=== PATIENT | male | born 1965 | race Caucasian/White ===

== ENCOUNTER 2023-09-16 19:24 | Emergency (ER) | payer OTHER, SELFPAY ==
[2023-09-16 19:26] VITALS: BP 136/90; PULSE 111; RESP 18; TEMP 36.2; O2SAT 95; BMI 37.6
[2023-09-16] MEDS: 0.9% Normal Saline (1000mL) 1,000 ML 999 ML IV (20:58)
--- OUTSIDE RECORDS SUMMARY | 2023-09-16 21:15 | XMS RPT_ITS | CCD ---
Author Name Unknown Address [address] [place] [address] Organization [facility] Care Team Providers Care Sheet Metal Helper Name Role Phone AMANDA DAWN Unavailable Unavailable LIZBETH PELAEZ Unavailable Unavailable Lizbeth Pelaez DO Primary Care Provider Eleanor Kirk DO Primary Care Provider ELEANOR KIRK Primary Care Unavailable DAMIEN ARNDT Unavailable Medications Current Medications Medication Drug Class(es) Dates Sig (Normalized) Sig (Original) atorvastatin 10 mg oral tablet (1 source) HMG-CoA Reductase Inhibitor take 1 tablet by mouth once daily atorvastatin (LIPITOR) 10 MG tablet Take 10 mg by mouth daily 0 Active canagliflozin 150 mg / metFORMIN hydrochloride 1000 mg oral tablet (1 source) Biguanide, Sodium-Glucose Cotransporter 2 Inhibitor take 150-1000 mg by mouth once daily canagliflozin-me tformin HCl (INVOKAMET) 150-1000 MG Take 1 tablet by mouth daily 0 Active DULoxetine (2 sources) Serotonin and Norepinephrine Reuptake Inhibitor DULOXETINE HCL PO Take by mouth. 0 Active gabapentin (2 sources) Anti-epileptic Agent GABAPENTIN PO Take by mouth. 0 Active hydroCHLOROthiazide 12.5 mg / losartan potassium 50 mg oral tablet (1 source) Thiazide Diuretic, Angiotensin 2 Receptor Josue take 1 tablet by mouth once daily losartan-hydroch lorothiazide (HYZAAR) 50-12.5 MG per tablet Take 1 tablet by mouth daily 0 Active ibuprofen 600 mg oral tablet (1 source) Nonsteroidal Anti-inflammatory Drug Start: 05-04-2017 take 1 tablet by mouth every six hours as needed for pain ibuprofen (ADVIL;MOTRIN) 600 MG tablet Take 1 tablet by mouth every 6 hours as needed for Pain 20 tablet 3 05/04/2017 Active 3 ml insulin degludec 100 unt/ml pen injector (1 source) Insulin Analog Insulin Degludec (TRESIBA FLEXTOUCH) 100 UNIT/ML SOPN Inject 20 Units into the skin daily 0 Active Losartan (2 sources) Angiotensin 2 Receptor Josue LOSARTAN POTASSIUM PO Take by mouth. 0 Active meloxicam (2 sources) Nonsteroidal Anti-inflammatory Drug MELOXICAM PO Take by mouth. 0 Active Completed/Discontinued Medications Medication Drug Class(es) Dates Sig (Normalized) Sig (Original) acetaminophen 325 mg / HYDROcodone bitartrate 5 mg oral tablet (2 sources) Opioid Agonist Start: 03-04-2023 End: 03-04-2023 HYDROcodone-acetam inophen ([place]) 5-325 MG per tablet 1 tablet erythromycin 0.005 mg/mg ophthalmic ointment (4 sources) Macrolide, Macrolide Antimicrobial Start: 03-04-2023 End: 03-04-2023 erythromycin (Romycin) 5 MG/GM ophthalmic ointment Problems Problem Classification Problem Date Documented Da te Episodic/Chronic Open wounds of head; neck; and trunk (4 sources) Laceration of left eyelid; Translations: [Laceration without foreign body of left eyelid and periocular area, initial encounter] Onset: 03-04-2023 03-04-2023 Episodic Other injuries and conditions due to external causes (2 sources) Injury of eye region; Translations: [Unspecified injury of unspecified eye and orbit, initial encounter] 03-04-2023 Episodic Other injuries and conditions due to external causes (2 sources) Unspecified injury of unspecified eye and orbit, initial encounter; Translations: [Unspecified injury of unspecified eye and orbit, initial encounter] Onset: 03-04-2023 Episodic Superficial injury; contusion (4 sources) Abrasion of left cornea; Translations: [Injury of conjunctiva and corneal abrasion without foreign body, left eye, initial encounter] Onset: 03-04-2023 03-04-2023 Episodic Results Test Name Value Interpretation Reference Range Facil ity Vital Signs Date Time Vital Sign Value Performing Clinician Faci yessenia 03-04-2023 20:51-0400 Diastolic blood pressure 89 mm[Hg] Damien Arndt MD Work Phone: [facility] [employer] 03-04-2023 20:51-0400 Heart rate 88 /min Damien Arndt MD Work Phone: [facility] [employer] 03-04-2023 20:51-0400 Respiratory rate 17 /min Damien Arndt MD Work Phone: [facility] 03-04-2023 20:51-0400 SaO2% (BldA) [Mass fraction] 95 % Damien Arndt MD Work Phone: [facility] 03-04-2023 20:51-0400 Systolic blood pressure 147 mm[Hg] Damien Arndt MD Work Phone: [facility] 03-04-2023 20:02-0400 Body temperature 98.4 [degF] Damien Arndt MD Work Phone: [facility] Encounters Encounter Date Encounter Type Care Provider Facility Start: 03-04-2023 End: 03-04-2023 Emergency department patient visit ELEANOR KIRK [facility] Start: 03-04-2023 End: 03-04-2023 Emergency department patient visit Damien Arndt MD Work Phone: [facility] ED Procedures Date Procedure Procedure Detail Performing Clinician Start: 03-04-2023 Sutr wnd eyelid/margin/tarsus/conju nc prtl thick Damien Arndt MD Work Phone: Start: 12-20-2020 Radex spine lumbosac ral 2/3 views Eleanor Kirk DO Work Phone: Plan of Treatment Date Care Activity Detail Author Start: 03-04-2033 DTaP/Tdap/Td Vaccine s (2 - Td or Tdap) DTaP/Tdap/Td Vaccines (2 - Td or Tdap) [facility] Start: 05-03-2023 Influenza vaccination Influenza Vacc ine (#1) [facility] Start: 05-03-2021 Influenza vaccination Flu vacc ine (Season Ended) [email or web address] Work Phone: Start: 2013 Screening for malign ant neoplasm of colon Colon cancer screen colonoscopy [employer] Work Phone: Start: 2013 Shingles Vaccine (1 of 2) Shingles Vaccine (1 of 2) [email or web address] Work Phone: Start: 2013 Zoster Vaccines (1 of 2) Zoster Vacc elena (1 of 2) [facility] Start: 1982 DTaP/Tdap/Td vaccine (1 - Tdap) DTaP/Tdap/Td vaccine (1 - Tdap) [facility] Work Phone: Start: 1981 Diabetes mellitus screening Diabetes Screening [facility] Start: 1981 Hepatitis C screening Hepatitis C Sc reening [facility] Start: 1979 COVID-19 Vaccine (1) COVID-19 Vaccin e (1) [facility] Work Phone: Start: 1978 HIV screening HIV screen [facility] Work Phone: Start: 1975 Depression Screening Depression Scre ening [facility] Start: 1973 Lipid panel Lipid screen [facility] Work Phone: Start: 01-03-1964 MMR Vaccines (1 of 1 - Standard series) MMR Vaccines (1 of 1 - Standard series) [facility] Start: 1963 COVID-19 Vaccine (#1) COVID-19 Vacci ne (#1) [facility] Start: 1963 Creatinine measurement Creatinine mo nitoring [facility] Work Phone: Start: 1963 Hepatitis C screening Hepatitis C sc reen [facility] Work Phone: Start: 1963 HIV screening HIV Screening [facility] Start: 1963 Lipid panel Lipid Panel [facility] Start: 1963 Potassium monitoring Potassium monit oring [facility] Work Phone: Start: 1963 Screening for malign ant neoplasm of colon [facility] Immunizations Immunization Date Immunization Notes Care Provider Fa cility 03-04-2023 tetanus toxoid, redu glory diphtheria toxoid, and acellular pertussis vaccine, adsorbed Damien Arndt MD Work Phone: [facility] Payers Date Payer Category Payer Private Health Insurance [facility] [id number] 2022-Present [address] [place] [address] Commercial [id number] 2022 Private Health Insurance [id number] 2017 Unknown [id number] 1965 Unknown [id number] Social History Date Type Detail Facility Start: 05-04-2017 Tobacco smoking stat [facility] Former smoker [facility] Work Phone: Start: 05-04-2017 Cigarettes smoked current (pack per day) - Reported [facility] Work Phone: Start: 05-04-2017 End: 03-04-2023 Alcohol intake Current non-drinker of alcohol (finding) [employer] Phone: Start: 1965 Sex Assigned At Not on file [facility] [employer] Phone: History of tobacco use Current smoker [facility] History of tobacco use Cigarette Smoker [facility] [employer] Gender identity Not on file [facility] [employer] Start: 02-22-2023 End: 03-04-2023 Exposure to SARS-CoV-2 (event) Not sure [facility] [employer] Medical Equipment Procedure Code Equipment Code Equipment Origin al Text Equipment Identifier Dates fluorescein 1 MG ophthalmic strip 1 strip [id number] Start: 03-04-2023 End: 03-04-2023 Emergency department Note 03-04-2023 Damien Arndt MD - 03/04/2023 7:53 PM EDTJemanuel Quiñonez RN - 03/04/2023 7:53 PM EDT Note Date & Type Note Facility 03-04-2023 Emergency departm ent Note Associated Order(s): Laceration Repair Images from the original note were not included. EMERGENCY DEPARTMENT ENCOUNTER Pt Name: Sebastian Cao Birthdate 1965 Date of evaluation: 03/04/2023 ED Provider: Damien Arndt MD CHIEF COMPLAINT No chief complaint on file. HISTORY OF PRESENT ILLNESS (Location/Symptom, Timing/Onset, Context/Setting, Quality, Duration, Modifying Factors, Severity) Note limiting factors. I wore appropriate PPE for the entirety of this encounter. HPI Sebastian Cao is a 58 y.o. who presents to the emergency department evaluated for his left eye pain. Patient states that he tripped and fell hitting his left face, eye on an angle wire. Denies loss of consciousness. Denies being on any blood thinners. States that he noticed some blood coming from it. Denies wearing contacts. States that he uses reading glasses. Nursing Notes were reviewed. REVIEW OF SYSTEMS Review of Systems Constitutional: Negative for fever. HENT: Positive for facial swelling (left facial swelling around eye). Eyes: Positive for photophobia and pain. Musculoskeletal: Negative for neck pain. Skin: Positive for wound. Neurological: Negative for syncope. Hematological: Does not bruise/bleed easily. Pertinent positives and negatives as per HPI PAST MEDICAL HISTORY Past Medical History: Diagnosis Date Chronic cholecystitis Diabetes mellitus (HCC) H/O CT scan High blood pressure Steatosis of liver Umbilical hernia SURGICAL HISTORY Past Surgical History: Procedure Laterality Date CHOLECYSTECTOMY 12/09/2014 Dr. Hager-- ALESIA COLONOSCOPY KNEE ARTHROSCOPY Bilateral 2013 Wad/RIT LIVER BIOPSY 12/09/2014 DAVID-- Dr. Hager-- ALESIA UMBILICAL HERNIA REPAIR 12/09/2014 DAVID- Dr. Hager-- ALESIA UPPER GASTROINTESTINAL ENDOSCOPY CURRENT MEDICATIONS Previous Medications No medications on file ALLERGIES Patient has no allergy information on record. FAMILY HISTORY Family History Problem Relation Name Age of Onset Heart attack Brother Diabetes Mother Heart attack Father Diabetes Father SOCIAL HISTORY Social History Socioeconomic History Marital status: Tobacco Use Smoking status: Former Packs/day: 0.20 Types: Cigarettes Substance and Sexual Activity Alcohol use: No Drug use: No SCREENINGS PHYSICAL EXAM ED Triage Vitals Temp Pulse Resp BP -- -- -- -- SpO2 Temp src Heart Rate Source Patient Position -- -- -- -- BP Location FiO2 (%) -- -- Physical Exam Vitals and nursing note reviewed. Constitutional: General: He is not in acute distress. Comments: 58-year-old male HENT: Head: Normocephalic. Comments: Left periorbital swelling. Mouth/Throat: Comments: Midface stable. No malocclusion. Eyes: General: Lids are everted, no foreign bodies appreciated. Vision grossly intact. Gaze aligned appropriately. Left eye: No foreign body. Extraocular Movements: Extraocular movements intact. Pupils: Pupils are equal, round, and reactive to light. Left eye: Corneal abrasion present. Andres exam negative. Slit lamp exam: Left eye: Anterior chamber quiet. No hyphema or hypopyon. Comments: 0.5 cm partial-thickness laceration to the left upper eyelid. No focal visual field deficits. Visual acuity obtained by nursing. Cardiovascular: Rate and Rhythm: Normal rate. Pulmonary: Effort: Pulmonary effort is normal. Musculoskeletal: Cervical back: Normal range of motion. Skin: Comments: Left upper eyelid laceration Neurological: Mental Status: He is alert. DIAGNOSTIC RESULTS RADIOLOGY (Per Emergency Physician): Interpretation per the Radiologist below, if available at the time of this note: No orders to display LABS: Labs Reviewed - No data to display All other labs were within normal range or not returned as of this dictation. EMERGENCY DEPARTMENT COURSE and DIFFERENTIAL DIAGNOSIS/MDM: Vitals: There were no vitals filed for this visit. Medications - No data to display Evaluated for his left eye injury. At that partial-thickness laceration to his left upper eyelid. Performed shared decision-making form consent. Patient elected for tissue adhesive repair. Placed TegaDerm to keep eyelids closed and protect eye. Patient treated with topical tetracaine. Cleansed with iodine. Wound approximated. Performed tetracaine and fluorescein slit and Maza lamp exam. Patient has small abrasion. Negative Andres's. No signs of open globe injury appreciated. Patient treated with topical erythromycin ointment. Discharged with recommendation to follow-up with eye provider in a couple days for reevaluation. Patient discharged improved condition. Agreeable with plan. PROCEDURES: Unless otherwise noted below, none Laceration Repair Performed by: Damien Arndt MD Authorized by: Damien Arndt MD Consent: Consent obtained: Verbal Consent given by: Patient Risks discussed: Infection, need for additional repair, nerve damage, pain, poor cosmetic result and poor wound healing Alternatives discussed: No treatment and delayed treatment Goessel protocol: Procedure explained and questions answered to patient or proxy's satisfaction: yes Patient identity confirmed: Verbally with patient Anesthesia: Anesthesia method: Topical application Topical anesthesia: Tetracaine. Laceration details: Location: Face Face location: L upper eyelid Extent: Partial thickness Length (cm): 0.5 Depth (mm): 1 Pre-procedure details: Preparation: Patient was prepped and draped in usual sterile fashion Exploration: Imaging outcome: foreign body not noted Wound extent: no foreign bodies/material noted Treatment: Area cleansed with: Povidone-iodine Skin repair: Repair method: Tissue adhesive Approximation: Approximation: Close Repair type: Repair type: Simple Post-procedure details: Dressing: Open (no dressing) Procedure completion: Tolerated well, no immediate complications CRITICAL CARE TIME FINAL IMPRESSION No diagnosis found. DISPOSITION PATIENT REFERRED TO: No follow-up provider specified. DISCHARGE MEDICATIONS: New Prescriptions No medications on file (Comment: Please note this report has been produced using speech recognition software and may contain errors related to that system including errors in grammar, punctuation, and spelling, as well as words and phrases that may be inappropriate. If there are any questions or concerns please feel free to contact the dictating provider for clarification.) Damien Arndt MD (electronically signed) Emergency Medicine Provider Damien Arndt MD 03/04/232128 Pt given dc instructions and follow up care. Pt verbalizes understanding. Pt amb indep to dc area, home w family documented in this encounter [facility] Emergency department Triage note 03-04-2023 Leonila Quiñonez RN - 03/04/2023 7:53 PM EDT Note Date & Type Note Facility 03-04-2023 Emergency departm ent Triage note Pt given dc instructions and follow up care. Pt verbalizes understanding. Pt amb indep to dc area, home w family [facility] Physician Emergency department Note 03-04-2023 Damien Arndt MD - 03/04/2023 7:53 PM EDT Note Date & Type Note Facility 03-04-2023 Physician Emergen cy department Note Associated Order(s): Laceration Repair Images from the original note were not included. EMERGENCY DEPARTMENT ENCOUNTER Pt Name: Sebastian Cao Birthdate 1965 Date of evaluation: 03/04/2023 ED Provider: Damien Arndt MD CHIEF COMPLAINT No chief complaint on file. HISTORY OF PRESENT ILLNESS (Location/Symptom, Timing/Onset, Context/Setting, Quality, Duration, Modifying Factors, Severity) Note limiting factors. I wore appropriate PPE for the entirety of this encounter. HPI Sebastian Cao is a 58 y.o. who presents to the emergency department evaluated for his left eye pain. Patient states that he tripped and fell hitting his left face, eye on an angle wire. Denies loss of consciousness. Denies being on any blood thinners. States that he noticed some blood coming from it. Denies wearing contacts. States that he uses reading glasses. Nursing Notes were reviewed. REVIEW OF SYSTEMS Review of Systems Constitutional: Negative for fever. HENT: Positive for facial swelling (left facial swelling around eye). Eyes: Positive for photophobia and pain. Musculoskeletal: Negative for neck pain. Skin: Positive for wound. Neurological: Negative for syncope. Hematological: Does not bruise/bleed easily. Pertinent positives and negatives as per HPI PAST MEDICAL HISTORY Past Medical History: Diagnosis Date Chronic cholecystitis Diabetes mellitus (HCC) H/O CT scan High blood pressure Steatosis of liver Umbilical hernia SURGICAL HISTORY Past Surgical History: Procedure Laterality Date CHOLECYSTECTOMY 12/09/2014 Dr. Hager-- ALESIA COLONOSCOPY KNEE ARTHROSCOPY Bilateral 2013 Wad/MIHAELA LIVER BIOPSY 12/09/2014 DAVID-- Dr. Hager-- ALESIA UMBILICAL HERNIA REPAIR 12/09/2014 DAVID- Dr. Hager-- ALESIA UPPER GASTROINTESTINAL ENDOSCOPY CURRENT MEDICATIONS Previous Medications No medications on file ALLERGIES Patient has no allergy information on record. FAMILY HISTORY Family History Problem Relation Name Age of Onset Heart attack Brother Diabetes Mother Heart attack Father Diabetes Father SOCIAL HISTORY Social History Socioeconomic History Marital status: Tobacco Use Smoking status: Former Packs/day: 0.20 Types: Cigarettes Substance and Sexual Activity Alcohol use: No Drug use: No SCREENINGS PHYSICAL EXAM ED Triage Vitals Temp Pulse Resp BP -- -- -- -- SpO2 Temp src Heart Rate Source Patient Position -- -- -- -- BP Location FiO2 (%) -- -- Physical Exam Vitals and nursing note reviewed. Constitutional: General: He is not in acute distress. Comments: 58-year-old male HENT: Head: Normocephalic. Comments: Left periorbital swelling. Mouth/Throat: Comments: Midface stable. No malocclusion. Eyes: General: Lids are everted, no foreign bodies appreciated. Vision grossly intact. Gaze aligned appropriately. Left eye: No foreign body. Extraocular Movements: Extraocular movements intact. Pupils: Pupils are equal, round, and reactive to light. Left eye: Corneal abrasion present. Andres exam negative. Slit lamp exam: Left eye: Anterior chamber quiet. No hyphema or hypopyon. Comments: 0.5 cm partial-thickness laceration to the left upper eyelid. No focal visual field deficits. Visual acuity obtained by nursing. Cardiovascular: Rate and Rhythm: Normal rate. Pulmonary: Effort: Pulmonary effort is normal. Musculoskeletal: Cervical back: Normal range of motion. Skin: Comments: Left upper eyelid laceration Neurological: Mental Status: He is alert. DIAGNOSTIC RESULTS RADIOLOGY (Per Emergency Physician): Interpretation per the Radiologist below, if available at the time of this note: No orders to display LABS: Labs Reviewed - No data to display All other labs were within normal range or not returned as of this dictation. EMERGENCY DEPARTMENT COURSE and DIFFERENTIAL DIAGNOSIS/MDM: Vitals: There were no vitals filed for this visit. Medications - No data to display Evaluated for his left eye injury. At that partial-thickness laceration to his left upper eyelid. Performed shared decision-making form consent. Patient elected for tissue adhesive repair. Placed TegaDerm to keep eyelids closed and protect eye. Patient treated with topical tetracaine. Cleansed with iodine. Wound approximated. Performed tetracaine and fluorescein slit and Maza lamp exam. Patient has small abrasion. Negative Andres's. No signs of open globe injury appreciated. Patient treated with topical erythromycin ointment. Discharged with recommendation to follow-up with eye provider in a couple days for reevaluation. Patient discharged improved condition. Agreeable with plan. PROCEDURES: Unless otherwise noted below, none Laceration Repair Performed by: Damien Arndt MD Authorized by: Damien Arndt MD Consent: Consent obtained: Verbal Consent given by: Patient Risks discussed: Infection, need for additional repair, nerve damage, pain, poor cosmetic result and poor wound healing Alternatives discussed: No treatment and delayed treatment Goessel protocol: Procedure explained and questions answered to patient or proxy's satisfaction: yes Patient identity confirmed: Verbally with patient Anesthesia: Anesthesia method: Topical application Topical anesthesia: Tetracaine. Laceration details: Location: Face Face location: L upper eyelid Extent: Partial thickness Length (cm): 0.5 Depth (mm): 1 Pre-procedure details: Preparation: Patient was prepped and draped in usual sterile fashion Exploration: Imaging outcome: foreign body not noted Wound extent: no foreign bodies/material noted Treatment: Area cleansed with: Povidone-iodine Skin repair: Repair method: Tissue adhesive Approximation: Approximation: Close Repair type: Repair type: Simple Post-procedure details: Dressing: Open (no dressing) Procedure completion: Tolerated well, no immediate complications CRITICAL CARE TIME FINAL IMPRESSION No diagnosis found. DISPOSITION PATIENT REFERRED TO: No follow-up provider specified. DISCHARGE MEDICATIONS: New Prescriptions No medications on file (Comment: Please note this report has been produced using speech recognition software and may contain errors related to that system including errors in grammar, punctuation, and spelling, as well as words and phrases that may be inappropriate. If there are any questions or concerns please feel free to contact the dictating provider for clarification.) Damien Arndt MD (electronically signed) Emergency Medicine Provider Damien Arndt MD 03/04/232128 [facility] Evaluation note Note Date & Type Note Facility documented in this encounter [facility] Discharge instructions Attachments Note Date & Type Note Facility Hospital Discharge instructions The following attachments cannot be sent through Care Everywhere.Eye Contusion Discharge Instructions ([place])Laceration Repair With Glue Discharge Instructions ([place])Corneal Abrasion ED ([place])documented in this encounter [facility] Summary Purpose Family History No Family History Records FoundNo Family History Records FoundNo Family History Records Found Advance Directives No Advanced Directives Records FoundNo Advanced Directives Records FoundNo Advanced Directives Records Found Additional Source Comments (unrecognized sect ion and content) No Status Records FoundNo Status Records FoundNo Status Records Found INFORMATION SOURCE (unrecogn ized section and content) DATE CREATED AUTHOR AUTHOR'S ORGANIZ ATION 10/17/2021 [facility] DATE CREATED AUTHOR AUTHOR'S ORGANIZ ATION 03/05/2023 [facility] Reason for Visit (unrecogniz ed section and content) Scheduled Active and Recently Administ ered Medications (unrecognized section and content) Care Teams (unrecognized sec tion and content) FOR RECORDS PERTAINING TO PATIENTS WHO ARE OR HAVE BEEN ENROLLED IN A CHEMICAL DEPENDENCY/SUBSTANCEABUSE PROGRAM, SOME INFORMATION MAY BE OMITTED. This clinical summary was aggregated from multiple sources. Caution should be exercised in using it in the provision of clinical care. This summary normalizes information from multiple sources, and as a consequence, information in this document may materially change the coding, format and clinical context of patient data. In addition, data may be omitted in some cases. CLINICAL DECISIONS SHOULD BE BASED ON THE PRIMARY CLINICAL RECORDS. [employer] [facility]. provides no warranty or guarantee of the accuracy or completeness of information in this document.
[2023-09-16 21:19] LABS: Absolute Lymphocyte Count 3.42 X10^3/uL (0.83-4.51); Absolute Neutrophil Count 8.1 X10^3/uL (2.0-7.7); Basophil# 0.14 X10^3/uL; Basophil% 1.1 % (0-1); Eosinophil# 0.36 X10^3/uL; Eosinophils% 2.8 % (0-5); Hematocrit 49.1 % (40-54); Hemoglobin 16.4 g/dL (13.0-16.5); Lymphocyte # 3.42 X10^3/ul (0.83-4.51); Lymphocyte % 26.7 % (19-41); Mean Corp Hgb Conc 33.4 g/dL (32-36); Mean Corpuscular Hgb 27.9 pg (27.0-32.0); Mean Corpuscular Volume 83.6 fL (80-94); Mean Platelet Vol. 9.9 fl (6.2-12.0); Monocyte% 5.5 % (0-10); NRBC Flagged by Analyzer 0 % (0-5); Neutrophil # 8.12 X10^3/uL (2.7-7.7); Neutrophil % 63.5 % (47-70); Platelet Count 237 K/mm3 (150-450); RBC Distribution Width CV 12.9 % (11.6-14.6); RBC Distribution Width SD 38.8 fl (35.1-43.9); Red Blood Count 5.87 M/mm3 (4.6-6.2); White Blood Count 12.8 K/mm3 (4.4-11.0)
[2023-09-16 21:23] LABS: Blood Gas Specimen Type VEN; O2 Delivery Device Not entered; SITE Not entered; VBG BASE EXCESS -4 mmol/L (-1.0-3.5); VBG Bicarbonate 21 mmol/L (22-26); VBG PO2 89 mmHg (25-40); VBG SO2 97 % (50-70); VBG TCO2 22 mmol/L (23-33); VBG pCO2 33.6 mmHg (41-51); VBG pH 7.41 (7.32-7.42)
[2023-09-16 21:49] LABS: ALB/GLOB Ratio 1.1 RATIO (0.9-2.4); AST(SGOT) 33 U/L (15-37); Alanine Aminotransfer ALT/SGPT 52 U/L (16-61); Albumin, Serum 3.9 g/dL (3.2-5.0); Alkaline Phosphatase 77 U/L (45-117); Anion Gap 11 (5-15); BUN 18 mg/dL (7-18); BUN/Creat Ratio 16.2 RATIO (10-20); Calcium,Total 9.7 mg/dL (8.5-10.1); Chloride 101 mmol/L (98-107); Creatinine, Serum 1.11 mg/dL (0.70-1.30); EST Glomerular Filtration Rate 72 mL/min (>60); Est Glom Filt Rate - Afr Amer 87 mL/min (>60); Estimated Creatinine Clearance 94.24 ml/min; Globulin 3.6 g/dL (2.2-4.2); Glucose 406 mg/dL (74-106); Potassium 3.8 mmol/L (3.5-5.1); Protein, Total 7.5 g/dL (6.4-8.2); Sodium Level 134 mmol/L (136-145)
[2023-09-16 21:56] LABS: Bacteria 0 SEEN /hpf (None Seen); Mucous, Urine 0 SEEN /hpf (<or=2+); Red Blood Cells-Urine 0 SEEN /hpf (0-5); White Blood Cells 0 SEEN /hpf (0-5)
[2023-09-16 21:57] VITALS: BP 145/83; PULSE 99; RESP 18; O2SAT 94
[2023-09-16 22:00] LABS: Color, Urine Yellow (Yellow); Glucose, Dipstick 1000 mg/dl (Normal); Ketone-Dipstick 15 mg/dl (Negative); Leukocyte Esterase-Dipstick Negative /ul (Negative); Nitrite-Dipstick Negative (Negative); Occult Blood-Urine Negative /ul (Negative); Protein-Dipstick 15 mg/dl (Negative); Specific Gravity, Urine 1.015 (1.002-1.030); Urine Bilirubin Dipstick Negative (Negative); Urine Clarity Sl. Cloudy (Clear); Urine Urobilinogen Normal (Normal)
--- NOTE | 2023-09-16 22:00 | EX.ED.DYSGE1 ---
HPI History of Present Illness Chief Complaint: Hyperglycemia [facility] Medical History (Updated 09/16/23 @ 20:59 by Lorena Simon) Diabetes Home Medications cyclobenzaprine 10 mg tablet 10 mg PO QHS PRN PRN muscle spasm 09/16/23 [History Last Taken Unknown] gabapentin 300 mg capsule 300 mg PO TID 09/16/23 [History Last Taken Unknown] losartan 100 mg-hydrochlorothiazide 25 mg tablet (Hyzaar) 1 tab PO DAILY 09/16/23 [History Last Taken Unknown] meloxicam 15 mg tablet 15 mg PO DAILY 09/16/23 [History Last Taken Unknown] metformin 500 mg tablet 500 mg PO DAILY 09/16/23 [History Last Taken Unknown] rosuvastatin 20 mg tablet (Crestor) 20 mg PO DAILY 09/16/23 [History Last Taken Unknown] Allergy/AdvReac Type Severity Reaction Status Date / Time No Known Allergies Allergy Verified 09/16/23 19:26 Social History Smoking Status: Current every day smoker tobacco type: cigarettes EXAM Physical Exam Const Vital Signs: 09/16/23 19:26 09/16/23 21:00 09/16/23 21:57 Temperature 97.2 F L Temperature Source Temporal Pulse Rate 111 H 99 Respiratory Rate 18 18 Respiratory Effort Normal Non-Labored Respiratory Pattern Normal Blood Pressure 136/90 H 145/83 H Blood Pressure Mean 105 103 Pulse Ox 95 94 Oxygen Delivery Method Room Air Room Air [facility] [place] Narrative Medical decision making narrative: HISTORY OF PRESENT ILLNESS: 58-year-old male presents with feeling well. Notes nausea and vomiting. Notes elevated blood pressure and elevated blood sugar. Notes he was recently on steroids for cough. Notes prior to arrival he felt slightly confused. Denies chest pain, shortness of breath, notes 2 episodes of vomiting as well. Denies abdominal pain. REVIEW OF SYSTEMS: Pertinent positives: Cough, nausea vomiting Pertinent negatives: Headache, chest pain, shortness of breath, focal weakness PHYSICAL EXAM: Nursing triage notes reviewed, Vital signs reviewed Constitutional: please see mdm HENT: MMM Eyes: Pupils equal round and reactive to light, Extraocular muscles intact Neck: No stridor, no JVD, full neck ROM Lungs: Clear to auscultation, No wheezing or rales. No increased work of breathing, no conversational dyspnea, no accessory muscle use, no nasal flaring. No respiratory distress noted Heart: Regular rate and rhythm, No murmurs, No rubs and No gallops, 2+ distal pulses (radial, femoral, posterior tibial) in all extremities Abdomen: Soft, there is no tenderness, rigidity, rebound or guarding, no obvious peritoneal signs, no palpable pulsatile abdominal masses, no auscultated abdominal bruit : No CVAT Extremities: No edema Neuro: Alert and oriented x3, neuro exam at baseline, cranial nerves II through XII are intact. No pain with extraocular muscle movement. There is negative test of skew. 5 of 5 strength in upper and lower extremities in flexion extension. Intact sensation to light touch in upper and lower extremity dermatomes. No truncal or extremity ataxia. No dysdiadochokinesia. Normal gait. 2+ reflexes in upper and lower extremities. No meningeal signs. Negative Babinski. NIH of 0. Skin: No rash or lesions noted MEDICAL DECISION MAKING: Chief Complaint: Cough, nausea vomiting External records reviewed: No recent ED visit Factors affecting care: Type 2 diabetes, hypertension, hyperlipidemia MDM Narrative: Patient was hemodynamically stable, afebrile, nontoxic-appearing. There are no focal neurologic deficits on exam. No focal cardiopulmonary maladies. No source of infection noted I considered the following differential diagnosis: DKA, pneumonia, steroid-induced hyperglycemia ALL IMAGES (IF OBTAINED) HAVE BEEN PERSONALLY REVIEWED AND INTERPRETED BY MYSELF. CBC with leukocytosis suggestive of significant admission, no anemia or thrombocytopenia VBG without evidence of acidosis, bicarb is greater than 15, no evidence of DKA BMP with mild hyponatremia, no significant anion gap or low bicarb to suggest DKA, noted hyperglycemia LFTs show no evidence of hepatobiliary pathology. I have personally reviewed the patient's chest x-ray. Chest x-ray is unremarkable for pulmonary edema, pneumothorax, pneumonia or focal cardiopulmonary abnormality. Urinalysis shows no evidence of urinary inflammation suggestive of UTI The synthesis of the patient's history, physical exam, labs, images suggest no evidence of severe infection, HHS or DKA. Patient symptoms are likely secondary to steroid-induced hyperglycemia leading to nausea vomiting and slight confusion or fogginess The patient and/or family, caregivers express understanding. The patient and/or family, caregivers agrees with the plan. Shared decision making: I will have a discussion with the patient and or visitors regarding risk/benefits of further testing or admission. They will be made aware of of the risk/benefits inherent in this decision they will be given the opportunity to voice understanding. Total critical care time today provided was at least 0 minutes. This excludes separately billable procedures. Critical care time (if documented) is secondary to the patient having high probability of clinically significant/life threatening deterioration in the patient's condition which required my urgent intervention. Impression: 1. Type 2 diabetes 2. Hyperglycemia 3. Glucosuria 4. Cough Dispo: Discharge Lab Data Labs: Laboratory Results - last 24 hr 09/16/23 09/16/23 09/16/23 21:00 21:50 22:30 WBC 12.8 H RBC 5.87 Hgb 16.4 Hct 49.1 MCV 83.6 MCH 27.9 MCHC 33.4 RDW Std Deviation 38.8 RDW Coeff of Katya 12.9 Plt Count 237 MPV 9.9 Immature Gran % (Auto) 0.400 Neut % (Auto) 63.5 Lymph % (Auto) 26.7 Nelson % (Auto) 5.5 Eos % (Auto) 2.8 Baso % (Auto) 1.1 H Absolute Neuts (auto) 8.1 H Absolute Lymphs (auto) 3.42 Nucleated RBC % 0 Sodium 134 L Potassium 3.8 Chloride 101 Carbon Dioxide 22.0 Anion Gap 11 BUN 18 Creatinine 1.11 Estim Creat Clear Calc 94.24 Est GFR (MDRD) Af Amer 87 Est GFR (MDRD) Non-Af 72 BUN/Creatinine Ratio 16.2 Glucose 406 H Calcium 9.7 Total Bilirubin 0.40 AST 33 ALT 52 Alkaline Phosphatase 77 Total Protein 7.5 Albumin 3.9 Globulin 3.6 Albumin/Globulin Ratio 1.1 Urine Color Yellow Urine Clarity Sl. Cloudy Urine pH 6.0 Ur Specific [place] 1.015 Urine Protein 15 H Urine Glucose (UA) 1000 H Urine Ketones 15 H Urine Occult Blood Negative Urine Nitrite Negative Urine Bilirubin Negative Urine Urobilinogen Normal Ur Leukocyte Esterase Negative Urine RBC 0 SEEN Urine WBC 0 SEEN Ur Squamous Epith Cells 0-5 SEEN Urine Bacteria 0 SEEN Urine Mucus 0 SEEN Acetone Level NEGATIVE POC Glucose 334 H ABG Data ABG results: ABG 09/16/23 21:18 Specimen Type RUPAL Sample Site Not entered VBG pH 7.41 VBG pO2 89 H VBG HCO3 21 L VBG Total CO2 22 L VBG O2 Sat (Calc) 97 H VBG Base Excess -4 L POC Mix VBG pCO2 Pt Tmp 33.6 L O2 Delivery Device Not entered Radiography Diagnostic Testing: Clinical Impression(s) from Imaging Studies Chest X-Ray 09/16/23 22:08 IMPRESSION: No acute cardiopulmonary disease. Electronically Signed: Татьяна Zavaleta MD at 22:31 EST Reading Location ID and State: [address] [place] [address] , Service support , Discharge Plan Triage Chief Complaint: Hyperglycemia ED Provider: Mich Spicer Dx/Rx/DC Orders Prescriptions: No Action metformin 500 mg tablet 500 mg PO DAILY losartan-hydrochlorothiazide [Hyzaar] 100-25 mg tablet 1 tab PO DAILY gabapentin 300 mg capsule 300 mg PO TID meloxicam 15 mg tablet 15 mg PO DAILY rosuvastatin [Crestor] 20 mg tablet 20 mg PO DAILY cyclobenzaprine 10 mg tablet 10 mg PO QHS PRN PRN (Reason: muscle spasm) Primary Care Provider: ELEANOR MÉNDEZ Referrals: ELEANOR MÉNDEZ DO [Primary Care Provider] - [employer] Reflex Medical hold order details:: IF a medical hold is selected below, a suggested order for a MEDICAL HOLD will reflex upon signing the document. Next of kin: [place] law dictates a PRIORITY LIST for identifying legal decision-maker/legal next of kin in the following order (LNOK): 1st: The patient?s legal guardian, if any 2nd: The patient's spouse (if status is questionable, consult Risk Management) 3rd: The patient?s adult child(janel) (majority, if multiple children) 4th: The patient?s parents 5th: The patient?s adult siblings (majority, if multiple children siblings)
--- NOTE | 2023-09-16 22:08 | RAD_ITS ---
STUDY: X-RAY CHEST REASON FOR EXAM: Male, 58 years old. cough TECHNIQUE: Single AP portable view of the chest. COMPARISON: None. FINDINGS: The lungs are clear and expanded. There is no demonstrated pleural abnormality. Normal size heart. Normal mediastinum and wiley. Normal visualized pulmonary arteries. Normal visualized aortic arch and descending thoracic aorta. There are diffuse degenerative changes of the visualized thoracic spine. Normal visualized ribs, clavicles, and shoulders. There is no demonstrated abnormality of the visualized soft tissue structures of the upper abdomen. RAD/Chest 1 View (Portable) IMPRESSION: No acute cardiopulmonary disease. Electronically Signed: Татьяна Zavaleta MD at 22:31 EST ,
[2023-09-16 22:09] LABS: Squamous Epithelial Cells - UA 0-5 SEEN /hpf (0-5)
[2023-09-16 22:51] LABS: Bedside Glucose 334 mg/dL (74-106)
[2023-09-16] MEDS: Ondansetron 4 MG/2 ML Vial IV (23:11)
[2023-09-16 23:13] VITALS: BP 151/92
--- NOTE | 2023-09-16 23:32 | ED.RN ---
meds to bed
== END 2023-09-16 23:32 | disposition home or self-care (01) ==
PROVIDERS: Physician Assistant; Emergency Provider Emergency Medicine; PCP Family Medicine; Visit Provider Emergency Medicine
DX: E11.65 Type 2 diabetes mellitus with hyperglycemia (principal); F17.210 Nicotine dependence, cigarettes, uncomplicated; E78.5 Hyperlipidemia, unspecified; I10 Essential (primary) hypertension; R05.9 Cough, unspecified; Z79.84 Long term (current) use of oral hypoglycemic drugs; Z79.899 Other long term (current) drug therapy
CPT/HCPCS: 71045; 80053; 81001; 82009; 82803; 82962; 85025; 96374; 99283; J7030; J2405